=== PATIENT | male | born 1985 | race African-American/Black ===

== ENCOUNTER 2018-12-17 04:12 | Inpatient (IN) | payer MEDICAID ==
[2018-12-17] VITALS (73 sets, daily range): BP systolic 46–225; BP diastolic 26–152
[~2018-12-17] VITALS: Ht 165.1 cm; Wt 64.9 kg
[~2018-12-17 04:12] MED LIST: ACET650S25 GT; BACL-141 GT; BISA10SU66 RC; CRAN3875 GT; DIPH25CA83 GT; DOCU250C14 GT; ESOM40CA GT; HYDR453. TOP; LORA-249 GT; MULT-1131 GT
[2018-12-17] MEDS ORDERED: ONDANSETRON HCL 4MG/2ML INJ IV STA (04:27)
[2018-12-17] MEDS ORDERED: VANCOMYCIN 1 G PREMIX 200 ML IV ONE (04:30)
[2018-12-17] MEDS ORDERED: PIPERACILLIN/TAZ 3.375G PREMIX 50 ML IV ONE (04:30)
[2018-12-17] MEDS ORDERED: SODIUM CHLORIDE 0.9% 1000ML BAG (SEPSIS BOLUS) IV ONE (04:30)
[2018-12-17 04:48] LABS: HEMATOCRIT. 51.8 % (42.0-52.0); HEMOGLOBIN. 16.7 g/dL (14.0-18.0); MEAN CORPUSCULAR HEMOGLOBIN 27.7 pg (28.0-32.0); MEAN CORPUSCULAR VOLUME 85.5 fL (80.0-94.0); MEAN PLATELET VOLUME 9.2 fl (7.4-10.4); PLATELET 246 x1000/uL (130-400); RED BLOOD CELL COUNT 6.05 mill/uL (4.7-6.1); RED CELL DISTRIBUTION WIDTH 17.4 % (11.6-14.6)
[2018-12-17 05:53] LABS: BG BASE EXCESS -3.8 mmol/L (-2.0-2.0); BG CARBOXYHEMOGLOBIN 0.2 % (0.5-1.5); BG DEOXYHEMOGLOBIN 1.1 % (0.0-5.0); BG FRACTION INSPIRED OXYGEN 40; BG HCO3 ACT 21.1 mmol/L (22.0-26.0); BG METHEMOGLOBIN 0.5 % (0.0-1.5); BG OXYGEN SATURATION 98.9 % (92.0-98.5); BG OXYHEMOGLOBIN 98.2 % (94.0-97.0); BG PCO2 38.4 mmHg (35.0-45.0); BG PH 7.358 (7.350-7.450); BG PO2 143.1 mmHg (75.0-100.0); BG PRESSURE SUPPORT 8; BG SAMPLE SITE LEFT RADIAL; BG TIDAL VOLUME(mL) 550 mL; BG TOTAL HEMOGLOBIN 16.9 g/dL (12.0-18.0); BG VENT MODE VENT - SIMV; BG VENT RATE 10 set
[2018-12-17 06:33] LABS: PLATELET ESTIMATE NORMAL
[2018-12-17 06:37] LABS: CLARITY URINE TURBID (CLEAR); COLOR URINE YELLOW (YELLOW); KETONES URINE NEGATIVE (NEGATIVE); LEUKOCYTE ESTERASE URINE 2+ (NEGATIVE); NITRITE URINE NEGATIVE (NEGATIVE); OCCULT BLOOD URINE NEGATIVE (NEGATIVE); PH URINE >=9.0 (4.5-8.0); PROTEIN URINE 4+ (NEGATIVE); SPECIFIC GRAVITY URINE 1.024 (1.005-1.030); UROBILINOGEN URINE 0.2 E.U./dL (0.2-1.0)
[2018-12-17 07:36] LABS: CHLORIDE 112 mEq/L (98-107)
[2018-12-17 07:39] LABS: INR 1.1; PROTHROMBIN TIME 11.4 sec (9.6-11.0)
[2018-12-17] MEDS ORDERED: NOREPINEPHRINE 4MG/250ML PMX 250 ML IV SCH (08:30)
[2018-12-17] MEDS ORDERED: SODIUM BICARBONATE 4% (2.4MEQ) 5ML VIAL IV ONE (08:31)
[2018-12-17] MEDS ORDERED: LIDOCAINE HCL 1% 20ML VIAL (Pyxis) INJ ONE (08:32)
[2018-12-17] MEDS ORDERED: IPRATROPIUM/ALBUTEROL 0.5-3(2.5)MG/3ML NEB INH PRN (09:00)
[2018-12-17] MEDS ORDERED: PIPERACILLIN/TAZ 3.375G PREMIX 50 ML IV SCH (09:00)
[2018-12-17] MEDS ORDERED: CLONIDINE 0.1MG TABLET PO PRN (09:00)
[2018-12-17] MEDS ORDERED: VANCOMYCIN 1 G PREMIX 200 ML IV SCH (09:00)
[2018-12-17] MEDS ORDERED: MAGNESIUM/ALUMINUM HYDROXIDE/SIMETHICONE 30ML UDC PO PRN (09:00)
[2018-12-17] MEDS ORDERED: ONDANSETRON HCL 4MG/2ML INJ IV PRN (09:00)
[2018-12-17] MEDS: MORPHINE SULFATE 2 MG/ML CPJ (NOT FOR IM USE) IV PRN ×2 (10:30→21:19)
[2018-12-17] MEDS ORDERED: SODIUM CHLORIDE 0.9% 500 ML IV SCH (11:15)
[2018-12-17] MEDS: PHENYLEPHRINE 40 MG in DEXT 5% WATER 246 ML IV PRN ×2 (11:41→18:01)
[2018-12-17] MEDS: ENOXAPARIN 40MG/0.4ML SYR SUBCUT SCH (12:05)
[2018-12-17] MEDS ORDERED: ACETAMINOPHEN 650MG/20.3ML UDC PO PRN (12:15)
[2018-12-17] MEDS: PIPERACILLIN/TAZ 3.375G PREMIX 50 ML IV SCH ×2 (13:57→18:01)
[2018-12-17] MEDS: INSULIN LISPRO 100 UNITS/ML SUBCUT SCH ×2 (14:15→18:00)
[2018-12-17] MEDS: BLOOD SUGAR DIAGNOSTIC STRIP TEST SCH ×2 (14:15→18:00)
[2018-12-17] MEDS ORDERED: DEXTROSE 50% WATER 50ML SYRINGE IV PRN (14:15)
[2018-12-17 15:12] LABS: CLARITY URINE CLEAR (CLEAR); COLOR URINE YELLOW (YELLOW); KETONES URINE NEGATIVE (NEGATIVE); LEUKOCYTE ESTERASE URINE 2+ (NEGATIVE); NITRITE URINE NEGATIVE (NEGATIVE); OCCULT BLOOD URINE 2+ (NEGATIVE); PROTEIN URINE NEGATIVE (NEGATIVE); SPECIFIC GRAVITY URINE 1.005 (1.005-1.030); UROBILINOGEN URINE 0.2 E.U./dL (0.2-1.0)
[2018-12-17] MEDS: VANCOMYCIN 1250MG in DEXTROSE 5% WATER 250ML IV SCH ×2 (15:15→21:18)
[2018-12-17] MEDS: DIPHENHYDRAMINE 50MG/ML VIAL IV PRN ×2 (15:32→21:18)
[2018-12-17] MEDS ORDERED: HYDROCODONE/ACETAMINOPHEN 5/325MG TABLET GT PRN (16:45)
[2018-12-17 16:57] LABS: CHLORIDE 112 mEq/L (98-107)
[2018-12-17 17:06] LABS: CREATINE KINASE 139 IU/L (39-308)
[2018-12-17 17:07] LABS: CREATINE KINASE MB FRACTION 4.9 ng/mL (0.5-3.6)
[2018-12-17] MEDS: ACETYLCYSTEINE 100MG/ML 10% VIAL 4ML INH SCH (20:38)
[2018-12-17] MEDS: IPRATROPIUM/ALBUTEROL 0.5-3(2.5)MG/3ML NEB HHN SCH (20:39)
[2018-12-17] MEDS: FAMOTIDINE 20MG TABLET NG SCH (21:18)
[2018-12-17 23:22] LABS: CREATINE KINASE MB FRACTION 3.8 ng/mL (0.5-3.6)
[2018-12-18] VITALS (99 sets, daily range): BP systolic 75–167; BP diastolic 35–154
[2018-12-18] MEDS: PIPERACILLIN/TAZ 3.375G PREMIX 50 ML IV SCH ×5 (00:14→23:52)
[2018-12-18] MEDS: BLOOD SUGAR DIAGNOSTIC STRIP TEST SCH ×5 (00:14→23:51)
[2018-12-18] MEDS: IPRATROPIUM/ALBUTEROL 0.5-3(2.5)MG/3ML NEB HHN SCH ×5 (00:37→20:25)
[2018-12-18] MEDS: ACETYLCYSTEINE 100MG/ML 10% VIAL 4ML INH SCH ×2 (00:37→09:37)
[2018-12-18] MEDS: PHENYLEPHRINE 40 MG in DEXT 5% WATER 246 ML IV PRN ×2 (02:34→21:54)
[2018-12-18] MEDS: MORPHINE SULFATE 2 MG/ML CPJ (NOT FOR IM USE) IV PRN ×2 (03:38→19:45)
[2018-12-18] MEDS: DIPHENHYDRAMINE 50MG/ML VIAL IV PRN ×2 (03:38→21:54)
[2018-12-18] MEDS: VANCOMYCIN 1250MG in DEXTROSE 5% WATER 250ML IV SCH (05:45)
[2018-12-18] MEDS: ACETAMINOPHEN 325MG TABLET PO PRN (05:45)
[2018-12-18] MEDS: INSULIN LISPRO 100 UNITS/ML SUBCUT SCH ×5 (06:21→23:51)
[2018-12-18 07:09] LABS: BASOPHILS % 0.7 % (0.0-2.0); EOSINOPHILS % 1.1 % (0.0-5.0); HEMATOCRIT. 42.8 % (42.0-52.0); HEMOGLOBIN. 13.9 g/dL (14.0-18.0); LYMPHOCYTES % 16.5 % (20.0-50.0); MEAN CORPUSCULAR HEMOGLOBIN 27.2 pg (28.0-32.0); MEAN CORPUSCULAR VOLUME 83.9 fL (80.0-94.0); MEAN PLATELET VOLUME 9.8 fl (7.4-10.4); MONOCYTES % 4.3 % (2.0-8.0); NEUTROPHILS % 77.4 % (40.0-76.0); PLATELET 202 x1000/uL (130-400); RED CELL DISTRIBUTION WIDTH 17.6 % (11.6-14.6)
[2018-12-18] MEDS: ENOXAPARIN 40MG/0.4ML SYR SUBCUT SCH (10:38)
[2018-12-18] MEDS ORDERED: AMLODIPINE 2.5MG TABLET GT SCH (14:00)
[2018-12-18] MEDS: FAMOTIDINE 20MG TABLET NG SCH (20:58)
[2018-12-19] VITALS (78 sets, daily range): BP systolic 57–216; BP diastolic 35–194
[2018-12-19] MEDS: ACETYLCYSTEINE 100MG/ML 10% VIAL 4ML INH SCH ×3 (00:04→17:07)
[2018-12-19] MEDS: IPRATROPIUM/ALBUTEROL 0.5-3(2.5)MG/3ML NEB HHN SCH ×6 (00:04→20:04)
[2018-12-19] MEDS: MORPHINE SULFATE 2 MG/ML CPJ (NOT FOR IM USE) IV PRN (02:30)
[2018-12-19] MEDS: VANCOMYCIN 1 G PREMIX 200 ML IV SCH ×2 (02:30→14:41)
[2018-12-19] MEDS: DIPHENHYDRAMINE 50MG/ML VIAL IV PRN (02:41)
[2018-12-19 04:31] LABS: EOSINOPHILS % 2.3 % (0.0-5.0); HEMATOCRIT. 45.4 % (42.0-52.0); HEMOGLOBIN. 14.8 g/dL (14.0-18.0); LYMPHOCYTES % 15.2 % (20.0-50.0); MEAN CORPUSCULAR HEMOGLOBIN 27.3 pg (28.0-32.0); MEAN CORPUSCULAR VOLUME 83.4 fL (80.0-94.0); MEAN PLATELET VOLUME 8.8 fl (7.4-10.4); MONOCYTES % 6.6 % (2.0-8.0); NEUTROPHILS % 74.9 % (40.0-76.0); PLATELET 195 x1000/uL (130-400); RED BLOOD CELL COUNT 5.44 mill/uL (4.7-6.1); RED CELL DISTRIBUTION WIDTH 17.1 % (11.6-14.6)
[2018-12-19 04:35] LABS: CHLORIDE 108 mEq/L (98-107)
[2018-12-19] MEDS: INSULIN LISPRO 100 UNITS/ML SUBCUT SCH ×3 (06:00→12:00)
[2018-12-19] MEDS: BLOOD SUGAR DIAGNOSTIC STRIP TEST SCH ×2 (06:30→12:00)
[2018-12-19] MEDS: PIPERACILLIN/TAZ 3.375G PREMIX 50 ML IV SCH ×2 (06:40→12:07)
[2018-12-19 07:45] LABS: BG BASE EXCESS 4.9 mmol/L (-2.0-2.0); BG CARBOXYHEMOGLOBIN 0.2 % (0.5-1.5); BG DEOXYHEMOGLOBIN 0.7 % (0.0-5.0); BG FRACTION INSPIRED OXYGEN 40; BG HCO3 ACT 26.7 mmol/L (22.0-26.0); BG METHEMOGLOBIN 0.6 % (0.0-1.5); BG OXYGEN SATURATION 99.3 % (92.0-98.5); BG OXYHEMOGLOBIN 98.5 % (94.0-97.0); BG PCO2 31.7 mmHg (35.0-45.0); BG PH 7.544 (7.350-7.450); BG PO2 185.1 mmHg (75.0-100.0); BG PRESSURE SUPPORT 14; BG SAMPLE SITE RIGHT RADIAL; BG TIDAL VOLUME(mL) 450 mL; BG TOTAL HEMOGLOBIN 15.1 g/dL (12.0-18.0); BG VENT MODE VENT - SIMV; BG VENT RATE 10 set
[2018-12-19] MEDS: MIDODRINE HCL 5MG TABLET PO SCH ×2 (09:57→14:39)
[2018-12-19] MEDS: ENOXAPARIN 40MG/0.4ML SYR SUBCUT SCH (09:58)
[2018-12-19] MEDS ORDERED: LIDOCAINE HCL/PF 1% 2ML VIAL ONE (11:00)
[2018-12-19] MEDS ORDERED: LORAZEPAM 2MG/ML CPJ IV PRN (19:45)
[2018-12-19] MEDS: ACETAMINOPHEN 325MG TABLET PO PRN (20:19)
[2018-12-19] MEDS ORDERED: DILTIAZEM HCL 5MG/ML 5ML VIAL IV NR (22:45)
[2018-12-20] VITALS (12 sets, daily range): BP systolic 98–151; BP diastolic 68–96
[2018-12-20] MEDS: FAMOTIDINE 20MG TABLET NG SCH ×2 (00:05→21:14)
[2018-12-20] MEDS: MIDODRINE HCL 5MG TABLET PO SCH ×2 (00:05→06:01)
[2018-12-20] MEDS: PIPERACILLIN/TAZ 3.375G PREMIX 50 ML IV SCH ×6 (00:07→23:48)
[2018-12-20] MEDS: DILTIAZEM HCL 125 MG in DEXT 5% WATER 100 ML IV SCH ×2 (00:07→23:31)
[2018-12-20] MEDS: VANCOMYCIN 1 G PREMIX 200 ML IV SCH (03:10)
[2018-12-20] MEDS: IPRATROPIUM/ALBUTEROL 0.5-3(2.5)MG/3ML NEB HHN SCH ×5 (04:00→20:14)
[2018-12-20 05:47] LABS: CHLORIDE 105 mEq/L (98-107)
[2018-12-20] MEDS: INSULIN LISPRO 100 UNITS/ML SUBCUT SCH ×4 (06:00→18:00)
[2018-12-20] MEDS: BLOOD SUGAR DIAGNOSTIC STRIP TEST SCH ×4 (06:00→18:31)
[2018-12-20 06:27] LABS: BASOPHILS % 0.7 % (0.0-2.0); EOSINOPHILS % 0.5 % (0.0-5.0); HEMATOCRIT. 43.1 % (42.0-52.0); HEMOGLOBIN. 14.3 g/dL (14.0-18.0); LYMPHOCYTES % 14.3 % (20.0-50.0); MEAN CORPUSCULAR HEMOGLOBIN 27.7 pg (28.0-32.0); MEAN CORPUSCULAR VOLUME 83.3 fL (80.0-94.0); MEAN PLATELET VOLUME 9.1 fl (7.4-10.4); MONOCYTES % 8.2 % (2.0-8.0); NEUTROPHILS % 76.3 % (40.0-76.0); PLATELET 243 x1000/uL (130-400); RED BLOOD CELL COUNT 5.17 mill/uL (4.7-6.1); RED CELL DISTRIBUTION WIDTH 17.1 % (11.6-14.6)
[2018-12-20] MEDS: ENOXAPARIN 40MG/0.4ML SYR SUBCUT SCH (09:32)
[2018-12-20] MEDS ORDERED: VANCOMYCIN 1 G PREMIX 200 ML IV SCH (14:00)
[2018-12-20] MEDS: ACETYLCYSTEINE 100MG/ML 10% VIAL 4ML INH SCH ×2 (15:56)
[2018-12-20] MEDS: MIDODRINE HCL 5MG TABLET GT SCH ×2 (18:30→21:24)
[2018-12-21] VITALS (11 sets, daily range): BP systolic 98–137; BP diastolic 57–94
[2018-12-21] MEDS: BLOOD SUGAR DIAGNOSTIC STRIP TEST SCH ×4 (00:04→18:01)
[2018-12-21] MEDS: ACETYLCYSTEINE 100MG/ML 10% VIAL 4ML INH SCH ×3 (00:11→16:30)
[2018-12-21] MEDS: IPRATROPIUM/ALBUTEROL 0.5-3(2.5)MG/3ML NEB HHN SCH ×6 (00:11→20:59)
[2018-12-21] MEDS: PIPERACILLIN/TAZ 3.375G PREMIX 50 ML IV SCH ×2 (05:29→12:57)
[2018-12-21] MEDS: ACETAMINOPHEN 325MG TABLET PO PRN (05:30)
[2018-12-21] MEDS: MIDODRINE HCL 5MG TABLET GT SCH ×4 (05:31→21:42)
[2018-12-21] MEDS: INSULIN LISPRO 100 UNITS/ML SUBCUT SCH ×4 (06:05→18:00)
[2018-12-21 06:33] LABS: HEMATOCRIT. 42.6 % (42.0-52.0); MEAN CORPUSCULAR HEMOGLOBIN 27.6 pg (28.0-32.0); MEAN CORPUSCULAR VOLUME 83.8 fL (80.0-94.0); PLATELET 233 x1000/uL (130-400); RED BLOOD CELL COUNT 5.08 mill/uL (4.7-6.1); RED CELL DISTRIBUTION WIDTH 17.3 % (11.6-14.6)
[2018-12-21 07:36] LABS: CHLORIDE 109 mEq/L (98-107)
[2018-12-21] MEDS: ENOXAPARIN 40MG/0.4ML SYR SUBCUT SCH (09:36)
[2018-12-21] MEDS: DILTIAZEM HCL 30MG TABLET PO SCH ×4 (12:30→23:51)
[2018-12-21 13:37] LABS: PLATELET ESTIMATE NORMAL
[2018-12-21] MEDS ORDERED: VANCOMYCIN 1 G PREMIX 200 ML IV SCH (16:00)
[2018-12-21 16:34] LABS: BG CARBOXYHEMOGLOBIN 0.3 % (0.5-1.5); BG DEOXYHEMOGLOBIN 5.1 % (0.0-5.0); BG HCO3 ACT 31.2 mmol/L (22.0-26.0); BG METHEMOGLOBIN 0.3 % (0.0-1.5); BG OXYGEN SATURATION 94.9 % (92.0-98.5); BG OXYHEMOGLOBIN 94.3 % (94.0-97.0); BG PCO2 42.3 mmHg (35.0-45.0); BG PH 7.485 (7.350-7.450); BG SAMPLE SITE RIGHT RADIAL; BG TIDAL VOLUME(mL) 450 mL; BG TOTAL HEMOGLOBIN 14.5 g/dL (12.0-18.0); BG VENT MODE VENT - SIMV; BG VENT RATE 8 set
[2018-12-21] MEDS: CEFTRIAXONE 2 G in DEXTROSE 5% WATER 50 ML IV SCH (16:37)
[2018-12-21] MEDS: FAMOTIDINE 20MG TABLET NG SCH ×2 (21:00→21:34)
[2018-12-22] VITALS (20 sets, daily range): BP systolic 100–162; BP diastolic 52–113
[2018-12-22] MEDS: BLOOD SUGAR DIAGNOSTIC STRIP TEST SCH ×4 (00:26→17:30)
[2018-12-22] MEDS: IPRATROPIUM/ALBUTEROL 0.5-3(2.5)MG/3ML NEB HHN SCH ×5 (01:57→16:33)
[2018-12-22] MEDS: ACETYLCYSTEINE 100MG/ML 10% VIAL 4ML INH SCH ×2 (01:57→08:25)
[2018-12-22] MEDS: DILTIAZEM HCL 30MG TABLET PO SCH ×3 (04:57→17:12)
[2018-12-22] MEDS: MIDODRINE HCL 5MG TABLET GT SCH ×3 (04:58→22:06)
[2018-12-22] MEDS: INSULIN LISPRO 100 UNITS/ML SUBCUT SCH ×4 (05:10→17:30)
[2018-12-22 06:23] LABS: HEMATOCRIT. 44.1 % (42.0-52.0); HEMOGLOBIN. 14.3 g/dL (14.0-18.0); MEAN CORPUSCULAR HEMOGLOBIN 27.4 pg (28.0-32.0); MEAN CORPUSCULAR VOLUME 84.4 fL (80.0-94.0); MEAN PLATELET VOLUME 9.4 fl (7.4-10.4); PLATELET 189 x1000/uL (130-400); RED BLOOD CELL COUNT 5.23 mill/uL (4.7-6.1); RED CELL DISTRIBUTION WIDTH 17.7 % (11.6-14.6)
[2018-12-22 06:39] LABS: CHLORIDE 115 mEq/L (98-107)
[2018-12-22 07:51] LABS: BG BASE EXCESS 1.7 mmol/L (-2.0-2.0); BG CARBOXYHEMOGLOBIN 0.3 % (0.5-1.5); BG DEOXYHEMOGLOBIN 8.5 % (0.0-5.0); BG HCO3 ACT 26.1 mmol/L (22.0-26.0); BG METHEMOGLOBIN 0.3 % (0.0-1.5); BG OXYGEN SATURATION 91.4 % (92.0-98.5); BG OXYHEMOGLOBIN 90.9 % (94.0-97.0); BG PCO2 40.3 mmHg (35.0-45.0); BG PH 7.429 (7.350-7.450); BG PO2 61.6 mmHg (75.0-100.0); BG SAMPLE SITE RIGHT RADIAL; BG TIDAL VOLUME(mL) 450 mL; BG VENT MODE VENT - SIMV; BG VENT RATE 8 set
[2018-12-22] MEDS: ENOXAPARIN 40MG/0.4ML SYR SUBCUT SCH (09:11)
[2018-12-22 11:40] LABS: PLATELET ESTIMATE NORMAL
[2018-12-22 13:10] LABS: BG BASE EXCESS 4.1 mmol/L (-2.0-2.0); BG CARBOXYHEMOGLOBIN 0.3 % (0.5-1.5); BG DEOXYHEMOGLOBIN 0.8 % (0.0-5.0); BG HCO3 ACT 28.6 mmol/L (22.0-26.0); BG METHEMOGLOBIN 0.6 % (0.0-1.5); BG OXYGEN SATURATION 99.2 % (92.0-98.5); BG OXYHEMOGLOBIN 98.3 % (94.0-97.0); BG PCO2 42.3 mmHg (35.0-45.0); BG PH 7.448 (7.350-7.450); BG PO2 173.3 mmHg (75.0-100.0); BG SAMPLE SITE RIGHT RADIAL; BG TIDAL VOLUME(mL) 450 mL; BG TOTAL HEMOGLOBIN 14.7 g/dL (12.0-18.0); BG VENT MODE VENT - SIMV; BG VENT RATE 12 set
[2018-12-22] MEDS ORDERED: LIDOCAINE HCL/PF 1% 2ML VIAL ONE (13:15)
[2018-12-22] MEDS: CEFTRIAXONE 2 G in DEXTROSE 5% WATER 50 ML IV SCH (17:11)
[2018-12-22 21:38] LABS: BG BASE EXCESS 4.8 mmol/L (-2.0-2.0); BG CARBOXYHEMOGLOBIN 0.3 % (0.5-1.5); BG DEOXYHEMOGLOBIN 5.3 % (0.0-5.0); BG FRACTION INSPIRED OXYGEN 40; BG HCO3 ACT 29.1 mmol/L (22.0-26.0); BG METHEMOGLOBIN 0.5 % (0.0-1.5); BG OXYGEN SATURATION 94.7 % (92.0-98.5); BG OXYHEMOGLOBIN 93.9 % (94.0-97.0); BG PCO2 41.9 mmHg (35.0-45.0); BG PEEP (cmH2O) 0 cmH2O; BG PRESSURE SUPPORT 12; BG SAMPLE SITE LEFT RADIAL; BG TIDAL VOLUME(mL) 450 mL; BG TOTAL HEMOGLOBIN 14.6 g/dL (12.0-18.0); BG VENT MODE VENT - SIMV; BG VENT RATE 12 set
[2018-12-23] VITALS (14 sets, daily range): BP systolic 100–146; BP diastolic 54–97
[2018-12-23] MEDS: DILTIAZEM HCL 30MG TABLET PO SCH ×3 (00:20→12:57)
[2018-12-23] MEDS: BLOOD SUGAR DIAGNOSTIC STRIP TEST SCH ×3 (00:38→12:00)
[2018-12-23] MEDS: IPRATROPIUM/ALBUTEROL 0.5-3(2.5)MG/3ML NEB HHN SCH ×4 (00:56→13:13)
[2018-12-23] MEDS: ACETYLCYSTEINE 100MG/ML 10% VIAL 4ML INH SCH (00:57)
[2018-12-23] MEDS ORDERED: LIDOCAINE HCL/PF 1% 2ML VIAL ONE (05:00)
[2018-12-23] MEDS: INSULIN LISPRO 100 UNITS/ML SUBCUT SCH ×3 (06:00→12:00)
[2018-12-23] MEDS: MIDODRINE HCL 5MG TABLET GT SCH ×2 (06:00→14:12)
[2018-12-23 08:20] LABS: BG BASE EXCESS 4.4 mmol/L (-2.0-2.0); BG CARBOXYHEMOGLOBIN 0.5 % (0.5-1.5); BG DEOXYHEMOGLOBIN 1.9 % (0.0-5.0); BG FRACTION INSPIRED OXYGEN 40; BG HCO3 ACT 28.6 mmol/L (22.0-26.0); BG METHEMOGLOBIN 0.5 % (0.0-1.5); BG OXYGEN SATURATION 98.1 % (92.0-98.5); BG OXYHEMOGLOBIN 97.1 % (94.0-97.0); BG PCO2 41.2 mmHg (35.0-45.0); BG PO2 103.6 mmHg (75.0-100.0); BG PRESSURE SUPPORT 12; BG SAMPLE SITE LEFT RADIAL; BG TIDAL VOLUME(mL) 500 mL; BG TOTAL HEMOGLOBIN 14.9 g/dL (12.0-18.0); BG VENT MODE VENT - SIMV; BG VENT RATE 12 set
[2018-12-23] MEDS: ENOXAPARIN 40MG/0.4ML SYR SUBCUT SCH (10:02)
[2018-12-23] MEDS ORDERED: DILTIAZEM HCL 60MG TABLET PO SCH (14:00)
[2018-12-23] MEDS: CEFTRIAXONE 2 G in DEXTROSE 5% WATER 50 ML IV SCH (14:11)
== END 2018-12-23 15:05 | DRG 720 ==
LOC: ER 04:12 → MICUNO 05:30 → EDBEDREQ 05:33 → EDBEDREQTM 05:33 → EDBEDREQSVC 05:33 → ENRESERV 07:40 → MICUNO 09:00 → MICUSO 19:00 → 5EST 12-19 18:00
PROVIDERS: ADMIT Internal Medicine; ATTEND Internal Medicine
PROC: 5A1955Z Respiratory Ventilation, Greater than 96 Consecutive Hours (ICD-10-PCS; principal; 2018-12-17)
PROC: 05HY33Z Insertion of Infusion Device into Upper Vein, Percutaneous Approach (ICD-10-PCS; 2018-12-17)
PROC: B54NZZA Ultrasonography of Left Upper Extremity Veins, Guidance (ICD-10-PCS; 2018-12-17)
DX: A41.9 Sepsis, unspecified organism (principal); J96.21 Acute and chronic respiratory failure with hypoxia; J69.0 Pneumonitis due to inhalation of food and vomit; G82.50 Quadriplegia, unspecified; R65.21 Severe sepsis with septic shock; E43 Unspecified severe protein-calorie malnutrition; E87.2 Acidosis; L89.219 Pressure ulcer of right hip, unspecified stage; Z99.11 Dependence on respirator [ventilator] status; I11.0 Hypertensive heart disease with heart failure; I50.22 Chronic systolic (congestive) heart failure; N39.0 Urinary tract infection, site not specified; E11.9 Type 2 diabetes mellitus without complications; I27.20 Pulmonary hypertension, unspecified; I42.0 Dilated cardiomyopathy; K21.9 Gastro-esophageal reflux disease without esophagitis; R13.10 Dysphagia, unspecified; R47.02 Dysphasia; Z79.899 Other long term (current) drug therapy; Z87.440 Personal history of urinary (tract) infections; Z93.0 Tracheostomy status; Z93.1 Gastrostomy status; Z87.820 Personal history of traumatic brain injury; Z79.84 Long term (current) use of oral hypoglycemic drugs
CPT/HCPCS: 36415; 36569; 36600; 71045; 76937; 80048; 80061; 80202; 82375; 82550; 82553; 82805; 82962; 83036; 83605; 83735; 84100; 84134; 84145; 84443; 84484; 87070; 87077; 87186; 93005; 93308; 93970; 94002; 94003; 94640; 96365; 96375; 99291; A6261; C1725; J0696; J1200; J1650; J1815; J2060; J2270; J2370; J2405; J2543; J3370; J3490; J7030; J7050; J7060; J7608; J7620; A4315